=== PATIENT | male | born 1980 | race Caucasian/White ===

== ENCOUNTER 2020-05-24 11:33 | Emergency (ER) | payer BC ==
--- NOTE | 2020-05-24 14:17 | EDM.PDOC ---
ED HPI GENERAL MEDICAL PROBLEM - General Chief Complaint: Laceration Stated Complaint: CUT ON LT RING FINGER Time Seen by Provider: 05/24/20 11:42 Source of Information: Reports: Patient History Limitations: Reports: No Limitations - History of Present Illness INITIAL COMMENTS - FREE TEXT/NARRATIVE: HISTORY AND PHYSICAL: History of present illness: Patient is a 40-year-old male who presents to the ED today with concern of left hand finger lacerations that occurred just prior to arrival to the ED. Patient states he was cutting plastic to fit a window with a box brander when the box brander slipped and cut his pinky finger and his ring finger on his left hand. Patient states he just had his tetanus updated 1 year ago. Patient denies any direct trauma or injury. Patient denies any other symptoms or concerns. Patient denies fever, chills, chest pain, shortness of breath, or cough. Denies headache, neck stiff ness, change in vision, syncope, or near syncope. Denies na usea, vomiting, abdominal pain, diarrhea, constipation, or dysuria. Has not noted any blood in urine or stool. Patient has been eating and drinking appropriately. Review of systems: As per history of present illness and below otherwise all systems reviewed and negative. Past medical history: As per history of present illness and as reviewed below otherwise noncontributory. Surgical history: As per history of present illness and as reviewed below otherwise noncontributory. Social history: See social history for further information Family history: As per history of present illness and as reviewed below otherwise noncontributory. Physical exam: General: Patient is alert, oriented, and in no acute distress. Patient sitting comfortably on exam table. HEENT: Atraumatic, normocephalic, pupils equal and reactive bilaterally, negative for conjunctival pallor or scleral icterus, mucous membranes moist, TMs normal bilaterally, throat clear, neck supple, nontender, trachea midline. No d rooling or trismus noted. No meningeal signs. No hot potato voice noted. Lungs: Clear to auscultation, breath sounds equal bilaterally, chest nontender. Heart: S1S2, regular rate and rhythm without overt murmur Abdomen: Soft, nondistended, nontender. Negative for masses or hepatosplenomegaly. Negative for costovertebral tenderness. Pelvis: Stable nontender. Genitourinary: Deferred. Rectal: Deferred. Skin: Intact, warm, dry. No lesions or rashes noted. Extremities: There is a 4 cm subcutaneous laceration of the left hand dorsum of the fifth digit without bleeding.there is another 2 cm subcutaneous laceration of the left hand dorsum of the fourth digit without bleeding. Patient has full range of motion of the complete left hand without deficit. Radial pulses grossly intact with a capillary refill less than 2 seconds. Otherwise, atraumatic, negative for cords or calf pain. Neurovascular unremarkable. Neuro: Awake, alert, oriented. Cranial nerves II through XII unremarkable. Cerebellum unremarkable. Motor and sensory unremarkable throughout. Exam nonfocal. Notes: Discussed importance for follow-up with a primary care provider. Voices understanding and is agreeable to plan of care. Denies any further questions or concerns at this time. Diagnostics: None (patient declines hand x-ray) Therapeutics: Sutures, lidocaine, sterile bandage placed by nursing staff Prescription: None Impression: Finger laceration, left, 4th digit Finger laceration, left, 5th digit Plan: 1. Keep the area clean and dry. Continue to monitor for signs of infection as discussed. Sutures to be removed in 7-10 days. 2. Tylenol and/or ibuprofen as directed and as needed for pain management and discomfort. 3. Please follow-up with your primary care provider as discussed. Return to the ED as needed and as discussed. Definitive disposition and diagnosis as appropriate pending reevaluation and review of above. Left Fingers Pain Score (Numeric/FACES): 4 - Related Data Allergies Allergy/AdvReac Type Severity Reaction Status Date / Time No Known Allergies Allergy Verified 05/24/20 12:28 Home Meds: Home Meds Finasteride [Propecia] 1 tab PO DAILY 05/24/20 [History] Past Medical History Cardiovascular History: Reports: None Psychiatric History: Reports: None - Infectious Disease History Infectious Disease History: Reports: None Social & Family History - Family History Family Medical History: Noncontributory - Tobacco Use Smoking Status *Q: Never Smoker - Caffeine Use Caffeine Use: Reports: Coffee - Recreational Drug Use Recreational Drug Use: No ED ROS GENERAL - Review of Systems Review Of Systems: Comprehensive ROS is negative, except as noted in HPI. ED EXAM, SKIN/RASH Exam: See Below (see dictation) ED SKIN PROCEDURES - Laceration/Wound Repair Left Digit - 5th (Baby) Appearance: Subcutaneous, Linear Distal NVT: Neuro & Vascular Intact, No Tendon Injury Anesthetic Type: Local Local Anesthesia - Lidocaine (Xylocaine): 1% Plain Local Anesthetic Volume: 5cc Skin Prep: Chlorhexidine (Hibiciens), Saline Saline Irrigation (cc's): 100 Exploration/Debridement/Repair: Wound Explored, In a Bloodless Field, Explored to Base, No Foreign Material Found Closed with: Sutures Lac/Wound length In cm: 4 Suture Size: 4-0 # of Sutures: 7 Suture Type: Interrupted Drain Placement: No Sterile Dressing Applied: Nurse Tetanus Status Addressed: Yes (up to date) Complications: No Left Digit - 4th (Ring) Appearance: Subcutaneous, Irregular, Clean Distal NVT: Neuro & Vascular Intact, No Tendon Injury Local Anesthesia - Lidocaine (Xylocaine): 1% Plain Local Anesthetic Volume: 5cc Skin Prep: Chlorhexidine (Hibiciens), Saline Saline Irrigation (cc's): 100 Exploration/Debridement/Repair: Wound Explored, In a Bloodless Field, Explored to Base, No Foreign Material Found Closed with: Sutures Lac/Wound length In cm: 2 Suture Size: 4-0 # of Sutures: 3 Suture Type: Silk Drain Placement: No Sterile Dressing Applied: Nurse Tetanus Status Addressed: Yes (up to date) Complications: No Course - Vital Signs Last Recorded V/S: Last Vital Signs Temp 98.3 F 05/24/20 12:29 Pulse 85 05/24/20 12:29 Resp 16 05/24/20 12:29 BP 156/92 H 05/24/20 12:29 Pulse Ox 97 05/24/20 12:29 - Orders/Labs/Meds Meds: Medications Discontinued Medications Generic Name Dose Route Start Last Admin Trade Name Gee PRN Reason Stop Dose Admin Lidocaine HCl 10 ml 05/24/20 12:43 05/24/20 12:45 Xylocaine-Mpf 1% INJECT 05/24/20 12:44 Not Given ONETIME ONE Lidocaine HCl 5 ml 05/24/20 12:43 05/24/20 12:49 Xylocaine-Mpf 1% INJECT 05/24/20 12:44 5 ml ONETIME ONE Administration Departure - Departure Time of Disposition: 14:11 Disposition: Home, Self-Care 01 Clinical Impression: Finger laceration Qualifiers: Encounter type: initial encounter Finger: unspecified finger Damage to nail status: without damage Foreign body presence: without foreign body Laterality: left Qualified Code(s): S61.219A - Laceration without foreign body of uns pecified finger without damage to nail, initial encounter - Discharge Information Referrals: PCP,Not In Area [Primary Care Provider] - Additional Instructions: The following information is given to patients seen in the emergency department who are being discharged to home. This information is to outline your options for follow-up care. We provide all patients seen in our emergency department with a follow-up referral. The need for follow-up, as well as the timing and circumstances, are variable depending upon the specifics of your emergency department visit. If you don't have a primary care physician on staff, we will provide you with a referral. We always advise you to contact your personal physician following an emergency department visit to inform them of the circumstance of the visit and for follow-up with them and/or the need for any referrals to a consulting specialist. The emergency department will also refer you to a specialist when appropriate. This referral assures that you have the opportunity for follow-up care with a specialist. All of these measure are taken in an effort to provide you with optimal care, which includes your follow-up. Under all circumstances we always encourage you to contact your private physician who remains a resource for coordinating your care. When calling for follow-up care, please make the office aware that this follow-up is from your recent emergency room visit. If for any reason you are refused follow-up, please contact the [facility] at and asked to speak to the emergency department charge nurse. [facility] [address] [place] [id number] [id number] 1. Keep the area clean and dry. Continue to monitor for signs of infection as discussed. Sutures to be removed in 7-10 days. 2. Tylenol and/or ibuprofen as directed and as needed for pain management and discomfort. 3. Please follow-up with your primary care provider as discussed. Return to the ED as needed and as discussed. Sepsis Event Note (ED) - Evaluation Sepsis Screening Result: No Definite Risk - Focused Exam Vital Signs: Vital Signs Temp Pulse Resp BP Pulse Ox 05/24/20 12:29 98.3 F 85 16 156/92 H 97
== END 2020-05-24 14:28 | disposition home or self-care (01) ==
LOC: MW.ED 11:33
DX: S61.215A Laceration without foreign body of left ring finger without damage to nail, initial encounter (principal); S61.217A Laceration without foreign body of left little finger without damage to nail, initial encounter; Z79.899 Other long term (current) drug therapy; W27.8XXA Contact with other nonpowered hand tool, initial encounter
CPT/HCPCS: 12002; 99282; J2001